=== PATIENT | female | born 1985 | race African-American/Black ===

== ENCOUNTER 2019-09-10 20:09 | Emergency (ER) | payer OTHER ==
[2019-09-10 20:21] VITALS: BP 123/75
[2019-09-10 20:27] LABS: Influenza B Molecular POSITIVE (Negative)
[2019-09-10] MEDS ORDERED: Ibuprofen TAB* 600 MG PO ONE (20:27)
--- NOTE | 2019-09-10 20:30 | UC ---
FLU HPI - HPI Summary HPI Summary: 34-year-old woman comes in with a chief complaint of fevers chills body aches runny nose sore throat cough chest congestion and feeling ill. It all started today. She is a family member who has the flu. No dysuria. She states over- the-counter medicines which helped a little bit with symptoms. - History of Current Complaint Chief Complaint: UCGeneralIllness Stated Complaint: STOMACH PAIN, HEADACHE, SORE THROAT Time Seen by Provider: 09/10/19 20:14 Hx Last Menstrual Period: 3 weeks Pain Intensity: 6 - Allergy/Home Medications Allergies/Adverse Reactions: Allergies Allergy/AdvReac Type Severity Reaction Status Date / Time No Known Allergies Allergy Verified 09/10/19 20:21 PMH/Surg Hx/FS Hx/Imm Hx Previously Healthy: Yes - Surgical History Surgical History: None Surgery Procedure, Year, and Place: DENIES - Family History Known Family History: Positive: Non-Contributory - Social History Alcohol Use: None Substance Use Type: None Smoking Status (MU): Light Every Day Tobacco Smoker Review of Systems All Other Systems Reviewed And Are Negative: Yes Constitutional: Positive: Fever, Chills, Other - SEE HPI Skin: Positive: Negative Eyes: Positive: Negative ENT: Positive: Sore Throat, Nasal Discharge, Sinus Congestion Respiratory: Positive: Cough Cardiovascular: Positive: Negative Gastrointestinal: Positive: Other - SEE HPI Motor: Positive: Negative Neurovascular: Positive: Negative Musculoskeletal: Positive: Myalgia Neurological: Positive: Negative Psychological: Positive: Negative Is Patient Immunocompromised?: No Physical Exam Triage Information Reviewed: Yes Appearance: No Pain Distress, Well-Nourished, Ill-Appearing - MILD Vital Signs: Initial Vital Signs Temp 100.1 F 09/10/19 20:14 Pulse 117 09/10/19 20:14 Resp 17 09/10/19 20:14 BP 123/75 09/10/19 20:14 Pulse Ox 100 09/10/19 20:14 Vital Signs Reviewed: Yes Eye Exam: Normal Eyes: Positive: Conjunctiva Clear ENT: Positive: Pharyngeal erythema, Nasal congestion, Nasal drainage, Tonsillar swelling - 2+ B/L, Uvula midline. Negative: Muffled voice, Hoarse voice Neck: Positive: Supple Respiratory: Positive: Lungs clear, Normal breath sounds, No respiratory distress Cardiovascular: Positive: Tachycardia Musculoskeletal: Positive: Strength Intact, ROM Intact Neurological: Positive: Alert, Muscle Tone Normal Psychological: Positive: Age Appropriate Behavior Skin Exam: Normal Flu Course/Dx - Differential Dx/Diagnosis Provider Diagnosis: Influenza Discharge ED - Sign-Out/Discharge Documenting (check all that apply): Patient Departure All imaging exams completed and their final reports reviewed: No Studies - Discharge Plan Condition: Stable Disposition: HOME Prescriptions: Oseltamivir Phosphate [Tamiflu] 75 mg PO BID #8 capsule Patient Education Materials: Influenza (ED) Forms: *Work Release Referrals: [facility] [Outside] Additional Instructions: FOLLOW UP WITH YOUR DOCTOR IF NOT COMPLETELY IMPROVED. GET REEVALUATED SOONER IF NOT IMPROVED OR WORSE OR ANY QUESTIONS OR CONCERNS. - Billing Disposition and Condition Condition: STABLE Disposition: Home
[2019-09-10] MEDS ORDERED: Oseltamivir CAP* 75 MG CAP PO ONE ×2 (20:45→20:46)
== END 2019-09-10 20:46 | disposition home or self-care (01) ==
LOC: UCEAST 20:09
DX: J11.1 Influenza due to unidentified influenza virus with other respiratory manifestations (principal); F17.290 Nicotine dependence, other tobacco product, uncomplicated
CPT/HCPCS: 87651; 99212; A9270-GY; G0463

== ENCOUNTER 2019-09-15 11:24 | Emergency (ER) | payer OTHER ==
--- NOTE | 2019-09-15 13:13 | UC ---
Abdominal Pain Female HPI - HPI Summary HPI Summary: PATIENT IS CURRENTLY RECOVERING FROM THE FLU. HAS A KNOWN HISTORY OF GERD AND FOR THE PAST FEW DAYS HAS HAD SHARP EPIGASTRIC ABDOMINAL PAIN. SHE DESCRIBES IT A GRIPPING SENSATION. PAIN DOES RADIATE THROUGH TO HER BACK AND SHE HAS SOME ASSOCIATED NAUSEA. TOOK ONE OTC PPI AT [facility] 3 DAYS AGO WITH NO RESOLUTION OF PAIN. - History of Current Complaint Chief Complaint: UCAbdominalPain Stated Complaint: ABDOMINAL BURNING Time Seen by Provider: 09/15/19 12:29 Hx Obtained From: Patient Hx Last Menstrual Period: 09/15/2019 Onset/Duration: Gradual Onset, Lasting Days, Still Present Timing: Constant Severity Initially: Moderate Severity Currently: Moderate Pain Intensity: 7 Pain Scale Used: 0-10 Numeric Location: Epigastric Radiates: Yes Radiates to: Back Character: Sharp Aggravating Factor(s): Food Alleviating Factor(s): Nothing Associated Signs and Symptoms: Positive: Back Pain, Nausea. Negative: Fever, Chest Pain, Dizzy, Urinary Symptoms Allergies/Adverse Reactions: Allergies Allergy/AdvReac Type Severity Reaction Status Date / Time No Known Allergies Allergy Verified 09/15/19 11:57 PMH/Surg Hx/FS Hx/Imm Hx GI/ History: Gastroesophageal Reflux - Surgical History Surgical History: None Surgery Procedure, Year, and Place: DENIES - Family History Known Family History: Positive: Non-Contributory - Social History Alcohol Use: None Substance Use Type: None Smoking Status (MU): Light Every Day Tobacco Smoker Review of Systems All Other Systems Reviewed And Are Negative: Yes Constitutional: Positive: Negative Respiratory: Positive: Negative Cardiovascular: Positive: Negative Gastrointestinal: Positive: Abdominal Pain, Nausea Genitourinary: Positive: Negative Physical Exam Triage Information Reviewed: Yes Appearance: Well-Appearing, No Pain Distress, Well-Nourished Vital Signs: Initial Vital Signs Temp 99 F 09/15/19 11:53 Pulse 76 09/15/19 11:53 Resp 16 09/15/19 11:53 BP 91/39 09/15/19 11:53 Pulse Ox 100 09/15/19 11:53 Laboratory Tests 09/15/19 12:43 POC Urine Color Yellow POC Urine Clarity Clear POC Urine pH 6.0 POC Ur Specif Almond 1.020 POC Urine Protein Trace POC Ur Glucose (UA) Negative POC Urine Ketones Trace POC Urine Blood 2+ A POC Urine Nitrite Negative POC Urine Bilirubin Negative POC Urine Urobilinogen 0.2 POC U Leukocyte Esteras Negative Vital Signs Reviewed: Yes Eyes: Positive: Conjunctiva Clear ENT: Positive: Hearing grossly normal Neck: Positive: Supple, Nontender, No Lymphadenopathy Respiratory Exam: Normal Cardiovascular Exam: Normal Abdomen Description: Positive: Soft. Negative: CVA Tenderness (R), CVA Tenderness (L), Distended, Guarding Bowel Sounds: Positive: Present Musculoskeletal: Positive: No Edema Neurological: Positive: Alert Psychological: Positive: Age Appropriate Behavior Skin: Negative: Rashes Abd Pain Female Course/Dx - Course Course Of Treatment: PATIENT HAS A KNOWN HISTORY OF GERD. SHE HAS SEEN GI IN THE PAST. ADVISED SHE FOLLOW-UP WITH GI AGAIN FOR REEVALUATION. WILL TRY A STRONGER PPI. HAVE ALSO DISCUSSED THE POSSIBILITY OF PANCREATITIS. CBC, CMP AND LIPASE DRAWN TODAY. INSTRUCTED TO GO TO THE ER WITHOUT FAIL IF HER SYMPTOMS WORSEN. - Differential Dx/Diagnosis Provider Diagnosis: Epigastric abdominal pain Discharge ED - Sign-Out/Discharge Documenting (check all that apply): Patient Departure All imaging exams completed and their final reports reviewed: No Studies - Discharge Plan Condition: Stable Disposition: HOME Prescriptions: Esomeprazole(NF) [Nexium(NF)] 40 mg PO DAILY #30 cap Ondansetron ODT TAB* [Zofran Odt TAB*] 4 mg PO Q6H PRN #20 tab.odt PRN Reason: Nausea/Vomiting Patient Education Materials: Abdominal Pain (ED) Referrals: [facility] [Provider Group] - 1 Week [facility] [Outside] - 2 Weeks Additional Instructions: URINE DOES NOT SUGGEST INFECTION BUT DOES HAVE CHANGES CONSISTENT WITH RELATIVE DEHYDRATION. THIS IS CONSISTENT WITH YOUR HISTORY OF DECREASED FOOD/FLUID INTAKE OVER THE PAST COUPLE OF DAYS. BLOOD WORK OBTAINED FOR FURTHER EVALUATION - BLOOD COUNT, METABOLIC PANEL, PANCREAS TEST. WE WILL CALL YOU WITH ANY ABNORMAL RESULTS. TRY NEXIUM. TAKE THIS REFLUX MEDICINE IN THE MORNING (IDEALLY AT LEAST 30 MINUTES BEFORE YOU EAT). EAT SLOWLY. STAY UPRIGHT AT LEAST 30 MINUTES AFTER EATING. EAT SMALLER, MORE FREQUENT MEALS OPPOSED TO LARGE INFREQUENT MEALS. AVOID POSSIBLE TRIGGER FOODS - GREASY, SPICY, ACIDIC FOODS. CAFFEINE, ALCOHOL. CONSIDER A CLEAR LIQUID DIET FOR NOW UNTIL YOUR SYMPTOMS IMPROVE. FOLLOW-UP WITH GI. GO TO THE ER WITHOUT FAIL IF YOUR SYMPTOMS WORSEN. CALL THE NUMBER BELOW FOR ASSISTANCE IN ESTABLISHING WITH A PCP An additional resource available to assist in finding the appropriate physician for your health care needs is the [facility] ([facility]). You may contact them by calling [phone]. RECHECK YOUR URINE IN A COUPLE OF WEEKS ONCE YOU'RE FEELING IMPROVED TO ENSURE THAT IT HAS NORMALIZED. - Billing Disposition and Condition Condition: STABLE Disposition: Home
[2019-09-15 13:28] VITALS: BP 123/64
[2019-09-15 19:40] LABS: Hematocrit 36 % (35-47); Hemoglobin 11.6 g/dL (12.0-16.0); Mean Corpuscular HGB Conc 32 g/dL (31-36); Mean Corpuscular Hemoglobin 26 pg (27-31); Mean Corpuscular Volume 83 fL (80-97); Mean Platelet Volume 10.6 fL (7.4-10.4); Platelet Count 209 10^3/uL (150-450); Red Blood Count 4.38 10^6 /uL (3.70-4.87); Red Cell Distribution Width 16 % (10-15); White Blood Count 3.6 10^3/uL (3.5-10.8)
[2019-09-15 19:58] LABS: Albumin 3.9 g/dL (3.2-5.2); Anion Gap 8 mmol/L (2-11); CO2 Carbon Dioxide 25 mmol/L (22-32); Calcium 8.7 mg/dL (8.6-10.3); Chloride 106 mmol/L (101-111); Potassium 3.6 mmol/L (3.5-5.0); Sodium 139 mmol/L (135-145)
[2019-09-15 20:04] LABS: ALT 15 U/L (7-52); AST 18 U/L (13-39); Albumin/Globulin Ratio 1.4 (1-3); Alkaline Phosphatase 46 U/L (34-104); BUN/Creatinine Ratio 9.2 (8-20); Blood Urea Nitrogen 6 mg/dL (6-24); EGFR African American 127.8 (>60); EGFR Non-African American 105.6 (>60); Globulin 2.7 g/dL (2-4); Glucose 84 mg/dL (70-100); Total Protein 6.6 g/dL (6.4-8.9)
[2019-09-15 22:30] LABS: ABS Eosinophils 0.1 10^3/ul (0-0.6); ABS Lymphocytes 1.4 10^3/ul (1.0-4.8); ABS Monocytes 0.4 10^3/ul (0-0.8); ABS Neutrophils 1.7 10^3/ul (1.5-7.7); Eosinophil % 2.3 %; Lymphocyte % 38.3 %; Nucleated Red Blood Cells % 0.1
== END 2019-09-15 13:36 | disposition home or self-care (01) ==
LOC: UCEAST 11:24
DX: R10.13 Epigastric pain (principal); M54.9 Dorsalgia, unspecified; R11.0 Nausea; K21.9 Gastro-esophageal reflux disease without esophagitis; F17.290 Nicotine dependence, other tobacco product, uncomplicated
CPT/HCPCS: 36415; 80053; 81003; 83690; 85025; 85060; 99212; G0463

== ENCOUNTER 2019-10-13 19:29 | Inpatient (IN) | payer OTHER ==
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
[2019-10-13 20:20] LABS: ABS Basophils 0.1 10^3/ul (0-0.2); ABS Eosinophils 0.2 10^3/ul (0-0.6); ABS Monocytes 0.3 10^3/ul (0-0.8); ABS Neutrophils 5.4 10^3/ul (1.5-7.7); Eosinophil % 2.9 %; Hematocrit 35 % (35-47); Hemoglobin 11.1 g/dL (12.0-16.0); Lymphocyte % 14.3 %; Mean Corpuscular HGB Conc 32 g/dL (31-36); Mean Corpuscular Hemoglobin 26 pg (27-31); Mean Corpuscular Volume 81 fL (80-97); Mean Platelet Volume 8.5 fL (7.4-10.4); Platelet Count 301 10^3/uL (150-450); Red Blood Count 4.27 10^6 /uL (3.70-4.87); Red Cell Distribution Width 16 % (10-15); White Blood Count 6.9 10^3/uL (3.5-10.8)
[2019-10-13 20:36] LABS: ALT 6 U/L (7-52); AST 11 U/L (13-39); Albumin 4.2 g/dL (3.2-5.2); Albumin/Globulin Ratio 1.4 (1-3); Alkaline Phosphatase 57 U/L (34-104); Anion Gap 9 mmol/L (2-11); BUN/Creatinine Ratio 11.3 (8-20); Blood Urea Nitrogen 9 mg/dL (6-24); CO2 Carbon Dioxide 24 mmol/L (22-32); Calcium 8.8 mg/dL (8.6-10.3); Chloride 105 mmol/L (101-111); EGFR African American 100.6 (>60); EGFR Non-African American 83.1 (>60); Globulin 3.1 g/dL (2-4); Glucose 91 mg/dL (70-100); Potassium 3.9 mmol/L (3.5-5.0); Sodium 138 mmol/L (135-145); Total Protein 7.3 g/dL (6.4-8.9)
[2019-10-13 20:54] LABS: Acetaminophen < 15 mcg/mL; Alcohol < 10 mg/dL (<10); Salicylate < 2.50 mg/dL (<30)
[2019-10-13 22:33] LABS: Urine Appearance Clear; Urine Bilirubin Negative (Negative); Urine Blood 2+ (Negative); Urine Color Yellow; Urine Glucose Negative (Negative); Urine Ketones 1+ (Negative); Urine Nitrite Negative (Negative); Urine Protein Negative (Negative); Urine Specific Gravity 1.026 (1.010-1.030); Urine Urobilinogen Negative (Negative)
[2019-10-13 22:36] LABS: Urine Bacteria Absent (Absent); Urine Red Blood Cell Trace(0-2/hpf) (Absent); Urine Squamous Epithelial Cell Present (Absent); Urine White Blood Cell Absent (Absent)
[2019-10-13 22:51] LABS: Urine Benzodiazepine Screen Presumptive Positive (None Detect); Urine Opiates Screen None Detected (None Detect)
[2019-10-13] MEDS ORDERED: QUEtiapine TAB* 25 MG PO ONE (23:15)
[2019-10-14] MEDS ORDERED: QUEtiapine TAB* 25 MG ONE (01:48)
[2019-10-14] MEDS ORDERED: Acetaminophen TAB* 325 MG PO PRN (03:25)
[2019-10-14] MEDS ORDERED: Al Hydrox/Mg Hydrox/Simet LIQ* 30 ML UDC PO PRN (03:25)
[2019-10-14 10:32] LABS: HCG Pregnancy < 0.60 mIU/mL
[2019-10-14] MEDS ORDERED: CMCS: Venlafaxine TAB (NF) 25 MG TAB PO SCH (14:00)
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
[2019-10-14] MEDS: Vitamin THERAPEUTIC TAB PO SCH (15:57)
[2019-10-14] MEDS ORDERED: Ondansetron TAB* 4 MG PO PRN (16:19)
[2019-10-14] MEDS: hydrOXYzine HCL TAB* 25 MG PO PRN (21:23)
[2019-10-15 07:33] LABS: HDL Cholesterol 60.7 mg/dL
[2019-10-15 08:34] VITALS: BP 111/58
--- NOTE | 2019-10-15 10:10 | PN ---
Subjective - Subjective Date of Service: 10/15/19 Service Type: 31995 Hosp care 35 min high complexity Subjective: Nursing Report: Patient was visible on unit, patient had nausea following taking effexor. Slept overnight. Attending group activities. CC: "Fine Patient was seen and evaluated today. The patient reported she feels better today and is no longer having nausea. She ate a bagel this morning and plans to eat lunch before taking Abilify. She is almost done with the MMPI. . The patient reports attending day groups. Per nursing no behavioral issues or overnight events reported. Objective - General Observations Appearance: Neat Appears Stated Age: Yes Stature: WNL Posture: Slumped Eye Contact: Average Behavior/Activity: WNL - Interaction Observations Attitude Towards Examiner: Cooperative Stated Mood: Dysphoric Affect: Restricted Speech Pattern/Tone: Clear Thought Process: Coherent Perception: WNL Thought Content: Depressive Hallucination Type: Denies Delusion Type: Denies - Cognitive Function Orientation: A&O x 4 Level of Consciousness: Awake - Medication Compliance Cooperative with Inpatient Medication Regimen: Yes - Group Participation Participates in Group Activities: Yes Assessment - Assessment Merits Inpatient Hospitalization: For Immediate Safety Clinical Impression: 34 year old Female with history of bipolar disorder came to the hospital following relationship dispute and experiencing depression and was admitted to the BSU at [facility]. Plan - Plan Treatment Plan: Name: VERONICA RICKS Birthdate: 1985 [id number] # Q30 minute observation with staff pass. # The patient requires psychiatric inpatient admission at this time to assure safety, receive treatment and work toward stabilization. # EKG ordered for risk of QT prolongation of antipsychotic medication. #B-HCG was ordered and results are negative. # Obtain collateral information from her partner # Collaboration with Elevator Repairer Amalia Laboy # Discontinue Effexor 75mg daily # Start Abilify 5mg daily # MMPI # Declined nicotine replacement despite occasional smoking #Goals before discharge include: psychiatric stabilization Tentative Discharge: Pending psychiatric stabilization Continued Medication Management: Continue Outpt Medication Medications: Current Medications Acetaminophen (Tylenol Tab*) 650 mg PO Q4H PRN PRN Reason: PAIN or TEMP > 101 F Al Hydrox/Mg Hydrox/Simethicone (Maalox Plus*) 30 ml PO Q4H PRN PRN Reason: INDIGESTION Aripiprazole (Abilify Tab*) 5 mg PO DAILY [facility] Hydroxyzine HCl (Atarax Tab*) 25 mg PO Q6H PRN PRN Reason: ANXIETY Last Admin: 10/14/19 21:23 Dose: 25 mg Multivitamins (Theragran Tab*) 1 tab PO DAILY [facility] Last Admin: 10/14/19 15:57 Dose: Not Given Ondansetron HCl (Zofran Tab*) 4 mg PO Q6H PRN PRN Reason: NAUSEA/VOMITING Last Admin: 10/14/19 16:30 Dose: 4 mg - Discharge Plan Discharge Plan: Inpatient Hospitalization
[2019-10-15] MEDS ORDERED: Nicotine* 2MG (FRUIT FLAVOR) GUM PO PRN (12:12)
[2019-10-15] MEDS: ARIPiprazole TAB* 5 MG PO SCH ×2 (12:41→14:54)
[2019-10-15] MEDS: Vitamin THERAPEUTIC TAB PO SCH (12:41)
[2019-10-15] MEDS: hydrOXYzine HCL TAB* 25 MG PO PRN (21:40)
[2019-10-16] MEDS: ARIPiprazole TAB* 5 MG PO SCH (08:35)
[2019-10-16] MEDS: Vitamin THERAPEUTIC TAB PO SCH (09:37)
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
--- NOTE | 2019-10-16 11:23 | PN ---
BSU: Group Therapy Note - Service Type Service Type: 40807 Group Psychotherapy - Cognitive Behavioral Group Therapy ( CBT):Patient was attentive and participatory in CBT programming this morning, and remained in good behavioral control. Patient expressed positive insights regarding relevant treatment interventions and goals.
== END 2019-10-16 13:00 | disposition home or self-care (01) | DRG 753 ==
LOC: ED 19:29 → BSU 10-14 01:26
PROVIDERS: ADMIT Psychiatry & Neurology Psychiatry; ATTEND Psychiatry & Neurology Psychiatry
DX: F31.81 Bipolar II disorder (principal); F17.210 Nicotine dependence, cigarettes, uncomplicated; Z62.810 Personal history of physical and sexual abuse in childhood; Z81.8 Family history of other mental and behavioral disorders; Z81.3 Family history of other psychoactive substance abuse and dependence
CPT/HCPCS: 36415; 80053; 80061; 80307; 80320; 80329; 81003; 81015; 83036; 84443; 84702; 85025; 90853; 93005; 99222; 99233; 99238; 99284; A9270-GY; G0480

== ENCOUNTER 2019-11-11 05:39 | Day surgery (SDC) | payer OTHER ==
[~2019-11-11 05:39] MED LIST: Buffered Lidocaine 1% SYRIN* 1 ML/SYRINGE INTRADERM ONE
[2019-11-11] MEDS ORDERED: celeCOXIB CAP* 200 MG ONE (05:54)
[2019-11-11] MEDS ORDERED: ceFAZolin 2 GM PREMIX in ORs 2 GM/50 ML BAG ONE (05:54)
[2019-11-11] MEDS ORDERED: Acetaminophen TAB* 325 MG ONE (05:54)
[2019-11-11] MEDS ORDERED: Acetaminophen TAB* 325 MG PO ONE (06:00)
[2019-11-11] MEDS ORDERED: celeCOXIB CAP* 200 MG PO ONE (06:00)
[2019-11-11] MEDS ORDERED: Lactated Ringers 1000 ML Bag* 1,000 ML IV SCH (06:00)
[2019-11-11] MEDS ORDERED: EPINEPHRINE 1 MG/ML 1 ML VIAL ONE (06:57)
[2019-11-11] MEDS ORDERED: Bupivacaine 0.25% SDV* 30 ML ONE (06:57)
[2019-11-11] MEDS ORDERED: fentaNYL* 50 MCG/ML 2 ML VIAL (100 MCG VIAL) ONE ×3 (07:15→09:17)
[2019-11-11] MEDS ORDERED: Midazolam* 1 MG/ML 2 ML VIAL (2 MG) ONE (07:15)
[2019-11-11] MEDS ORDERED: Famotidine IV* 10 MG/ML 2 ML (20 mg) ONE (07:26)
[2019-11-11] MEDS ORDERED: Naloxone* 0.4 MG/ML 1 ML VIAL IV PRN (07:42)
[2019-11-11] MEDS ORDERED: Dexamethasone IV* 4 MG/ML 1 ML (4 MG) ONE (08:11)
[2019-11-11] MEDS ORDERED: Lidocaine 2% PF * 5 ML VIAL ONE (08:11)
[2019-11-11] MEDS ORDERED: Propofol* 10 MG/ML 20 ML BTL ONE (08:11)
[2019-11-11] MEDS ORDERED: Bupivacaine 0.5% SDV PF* 30ML VIAL ONE (08:11)
[2019-11-11] MEDS ORDERED: Ondansetron INJ* 2 MG/ML VIAL ONE (10:27)
[2019-11-11] MEDS ORDERED: HYDROmorphone INJ1* 1 MG/ML SYRINGE ONE ×2 (11:16→12:53)
[2019-11-11] MEDS: HYDROmorphone INJ1* 1 MG/ML SYRINGE IV PRN ×2 (11:16→11:34)
[2019-11-11] MEDS ORDERED: oxyCODONE TAB* 5 MG TAB ONE (11:59)
[2019-11-11 13:18] VITALS: BP 106/59
--- NOTE | 2019-11-11 13:57 | OP ---
OPERATIVE NOTE: DATE OF OPERATION: 11/11/19 DATE OF : 89 SURGEON: Sherman Burns MD COLLECTION SPECIALIST: SIMON Garcia A physician food and beverage assistant was required for the length of the procedure, for assistance with patient position, retraction, instrumentation, knee manipulation , and closure. ANESTHESIOLOGIST: Dr. Erick Duncan. ANESTHESIA: General anesthesia, regional adductor canal block anesthesia. PRE-OP DIAGNOSIS: Right knee anterior cruciate ligament tear. POST-OP DIAGNOSIS: Right knee anterior cruciate ligament tear. OPERATIVE PROCEDURE: Right knee arthroscopic anterior cruciate ligament reconstruction with quadriceps autograft using all-inside technique. ANTIBIOTICS: Ancef 2 g IV. IV FLUIDS: See anesthesia note. DLEIY-BN-UQAK TIME: 146 minutes. TOURNIQUET TIME: 120 minutes at 300 mmHg, right proximal thigh tourniquet. IMAGING: Mini C-arm. One picture taken to confirm a femoral-sided fixation. SPECIMEN: None. IMPLANTS: Arthrex TightRope button fixation, femur and tibia, ABS button on the tibia. COMPLICATIONS: None. ESTIMATED BLOOD LOSS: Minimal. 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 The patient smokes 5 cigarettes per day. Recent psychiatric admission. MRI from that injury showed an ACL tear, possible low-grade MCL sprain. The patient initially had incomplete extension preoperatively but by the day of the procedure had full passive and active range of motion 0 to over 120 degrees of flexion. Discussed nonoperative and operative treatment of ACL tears. Discussed possibility of treatment of any meniscal tears found during procedure. Discussed risks and potential complications of surgery. Discussed different graft choices and we opted for a quadriceps autograft. DESCRIPTION OF PROCEDURE: In the preoperative holding, the patient signed a written consent. Operative extremity was marked in preoperative holding. The patient had a regional adductor canal block by anesthesiologist in preoperative holding. The patient was taken back to the operating room, placed supine on the operating room table. Sedated and intubated. Tourniquet placed right proximal thigh. Bump under the right hemipelvis. Right lower extremity was prepped and draped. Formal surgical time-out performed. Esmarch was applied and tourniquet was elevated. Anterolateral knee arthroscopy portal established using standard technique. No articular cartilage damage in patellofemoral compartment. Much synovitis and extra fat anteriorly within the joint. No medial or lateral compartment pathology. No meniscal tears nor any articular cartilage damage. Confirmed ACL torn. Applied the [facility] Knee Positioner. I made a 5 cm longitudinal skin incision overlying the quadriceps tendon. Dissected down to the quadriceps tendon. Using the Arthrex system harvested a length of graft just over 8 cm long. With the graft still in the wound proximally, I used the suture tape system to prep the distal end of the graft. We placed that through the appropriate silk suture for this button flip system. Harvested the remainder of the graft proximally. Closed the quadriceps tendon, area of high-grade partial thickness deficit secondary to our harvest, with simple and [id number] stitches using Vicryl 0 and FiberWire 0 suture. On the back table, prepared the distal end of the graft. I cut the graft so that it was between 7 and 7.5 cm long. Prepped with suture tape the distal end of the graft. I had at least 2 cm sutured on either end of the graft. Held the graft under tension on the back table and kept it moist. Returned to the knee. Performed a notch plasty. Debrided some remainder of ACL stump. Using all appropriate landmarks, marked my femoral tunnel location to be. Hyperflexed the knee and placed a Beath pin. I drilled my tunnel, which was 9.5 mm in diameter and somewhere between 25 and 30 mm long. Returned the knee to 90 degrees of flexion. There was a stump of ACL remaining. Using a variety of landmarks including that stump of ACL, I placed my tibial guide pin. Prior to that I had made an anteromedial proximal longitudinal skin incision and dissected down to bone more distally. I set my tibial pin guide to 57.5 degrees. I placed that pin. I liked the pin location. Using a retrograde reamer, flip cutter, I reamed a 9 mm wide tunnel that was somewhere between 4 and 4.5 cm long. Placed passing sutures. Passed my graft into the knee. While directly visualizing it, passed my femoral button and flipped it directly on bone. I had 0 concern that I had pulled it too far. I pulled the graft partial up into the femoral tunnel. I pulled my graft down into the tibial tunnel. We had a suture issue so actually had to bring the tibial end of the graft back out through the anteromedial portal and adjust the suture. We then repassed this into the tibial tunnel. Applied ABS button distally. With the knee fully extended I tightened proximally and distally. Evaluated the graft. None of my marking was visible distally, meaning at least 2 or 2.5 cm where in the tibial tunnel. Evaluated the femoral side of my graft. I could barely visualize marking pin which meant that at least 2 to 2.5 cm of graft was present in the femoral tunnel. I was very happy with this. Again tightened proximally and distally with the knee fully extended and a posterior drawer maneuver applied. I next examined the knee. No laxity with Ishmael's or anterior drawer. I next scoped the knee. I like the position of the graft and the appearance of the graft. I confirmed with an arthroscopic probe, excellent tension of the ACL graft. Closure. I placed stitches over the femoral button proximally, using a knot pusher with the knee in full extension. Over the tibial tunnel I closed the fascia with [id number] stitches using Vicryl 0 suture. Subcutaneous tissue in the big open incisions was closed with buried simple stitches using Vicryl 2.0 suture. All skin incisions were closed with nylon 3.0 suture either running stitches or [id number]-rg-[id number] or figure-of- twelve stitches. The tourniquet it should be noted was dropped immediately to 120 minutes of tourniquet time. Xeroform, 4x4s, ABD, sterile Webril, Wally bandage from foot to proximal groin. Cooling unit. Knee brace locked in extension. The patient was awakened, extubated, and transferred to the PACU. DISPOSITION: The patient will start physical therapy immediately. Weightbearing as tolerated and the knee brace locked in extension. Short course of antibiotics as prophylaxis. Percocet as needed for pain control. Aspirin b.i.d. x2 weeks for DVT prophylaxis. The patient will follow up with me in clinic 10 to 14 days postoperatively. [id number]/[facility] #: [id number] ROSE MARY
[2019-11-12] MEDS ORDERED: Famotidine IV* 10 MG/ML 2 ML (20 mg) IV ONE (06:00)
== END 2019-11-11 13:45 | disposition home or self-care (01) ==
LOC: OR 05:39
PROVIDERS: ATTEND Orthopaedic Surgery
DX: S83.511A Sprain of anterior cruciate ligament of right knee, initial encounter (principal); X50.0XXA Overexertion from strenuous movement or load, initial encounter; Y92.9 Unspecified place or not applicable; F41.8 Other specified anxiety disorders; G89.18 Other acute postprocedural pain; F31.9 Bipolar disorder, unspecified; F17.210 Nicotine dependence, cigarettes, uncomplicated; K21.9 Gastro-esophageal reflux disease without esophagitis; M19.90 Unspecified osteoarthritis, unspecified site
CPT/HCPCS: 76000; 81025; A9270-GY; C1713; J0690; J1100; J1170; J2250; J2405; J2704; J3010; J3490